=== PATIENT | female | born 1955 | race Caucasian/White ===

== ENCOUNTER 2016-11-04 14:04 | Emergency (ER) | payer BC ==
[2016-11-04 14:23] VITALS: BP 154/81
[2016-11-04] MEDS ORDERED: Cyclobenzaprine 10 MG Tab PO ONE (14:55)
[2016-11-04] MEDS ORDERED: HYDROmorphone 0.5 MG/0.5 ML Syringe IM ONE (14:55)
--- NOTE | 2016-11-04 14:58 | EDM.PDOC ---
[id number]: ABD/BACK PAIN Time Seen by Provider: 11/04/16 14:56 Source of Information: Reports: Patient History Limitations: Reports: No Limitations - History of Present Illness INITIAL COMMENTS - FREE TEXT/NARRATIVE: pt has a long history of low back pain. She has known disc diease. Sh was at work and she deloped severe low back pain and the pain is coming around to the front of her abdoman. She did not have definite urine symptoms. Onset: Gradual Duration: Hour(s):, Getting Worse Location: Reports: Back Associated Symptoms: Reports: No Other Symptoms Lower Back Pain Score (Numeric/FACES): 8 - Related Data Allergies Allergy/AdvReac Type Severity Reaction Status Date / Time No Known Allergies Allergy Verified 11/04/16 14:31 Home Meds: Home Meds DULoxetine [Cymbalta] 60 mg PO DAILY 02/15/13 [History] Pantoprazole [Protonix] 40 mg PO DAILY #30 tab.cr 07/12/15 [Rx] Flecainide [Tambocor] 100 mg PO DAILY 11/04/16 [History] Past Medical History HEENT History: Reports: Impaired Vision Cardiovascular History: Reports: Arrhythmia, Other (See Below) Other Cardiovascular History: tachy Respiratory History: Reports: Asthma Gastrointestinal History: Reports: GERD Genitourinary History: Reports: Renal Calculus 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: Musculoskeletal History: Reports: Arthritis, Back Pain, Chronic, Other (See Below) Other Musculoskeletal History: bursitis in hips Hematologic History: Reports: Anemia Dermatologic History: Reports: Eczema - Past Surgical History GI Surgical History: Reports: Appendectomy Female Surgical History: Reports: Hysterectomy, Oophorectomy, Other (See Below) Other Female Surgeries/Procedures: lumpectomy left breast Social & Family History - Family History Cardiac: Reports: Afib Respiratory: Reports: Asthma Oncologic: Reports: Lung - Tobacco Use Smoking Status *Q: Never Smoker - Caffeine Use Caffeine Use: Reports: Coffee - Recreational Drug Use Recreational Drug Use: No ED ROS GENERAL - Review of Systems Review Of Systems: See Below Constitutional: Reports: No Symptoms HEENT: Reports: No Symptoms Respiratory: Reports: No Symptoms Cardiovascular: Reports: No Symptoms Endocrine: Reports: No Symptoms GI/Abdominal: Reports: Other (pain in the abdoman bilateral coming around from the back . pt has been having normal bms and no vomitin. ) : Reports: No Symptoms Musculoskeletal: Reports: Other (Pain in the lower back no radiation down the legs radiates to the abdoman both sides. ) ED EXAM,LOWER BACK PAIN/INJURY - Physical Exam Exam: See Below Text/Narrative:: pt arrived with severe lower back pain. She has known lumbar disc disease in the l4-l5 area. She has some pain in the abdoman which is coming to the front. Exam Limited By: No Limitations General Appearance: Alert, Moderate Distress Ears: Normal External Exam Nose: Normal Inspection Throat/Mouth: Normal Inspection Head: Atraumatic Neck: Normal Inspection Respiratory/Chest: No Respiratory Distress Cardiovascular: Regular Rate, Rhythm GI/Abdominal: Other (pt is not guarded. She has no fever. ) (Female) Exam: Deferred Rectal (Female) Exam: Deferred Back Exam: Normal Inspection, Other (mild muscle tenderness. ) Extremities: Normal Inspection Neurological: Alert, Oriented x 3 Course - Vital Signs Last Recorded V/S: Last Vital Signs Temp 37.3 C 11/04/16 14:22 Pulse 85 11/04/16 14:22 Resp 20 11/04/16 14:22 BP 154/81 H 11/04/16 14:22 Pulse Ox 99 11/04/16 14:22 - Orders/Labs/Meds Labs: Laboratory Tests 11/04/16 11/04/16 11/04/16 Range/Units 14:54 14:54 15:13 WBC 7.9 (4.5-11.0) K/uL RBC 4.56 (3.30-5.50) M/uL Hgb 13.1 (12.0-15.0) g/dL Hct 40.2 (36.0-48.0) % MCV 88 (80-98) fL MCH 29 (27-31) pg MCHC 33 (32-36) % Plt Count 408 H (150-400) K/uL Neut % (Auto) 56 (36-66) % Lymph % (Auto) 29 (24-44) % [place] % (Auto) 11 H (2-6) % Eos % (Auto) 3 (2-4) % Baso % (Auto) 1 (0-1) % Sodium 144 (140-148) mmol/L Potassium 3.7 (3.6-5.2) mmol/L Chloride 109 H (100-108) mmol/L Carbon Dioxide 28 (21-32) mmol/L Anion Gap 10.7 (5.0-14.0) mmol/L BUN 11 D (7-18) mg/dL Creatinine 0.8 (0.6-1.0) mg/dL Est Cr Clr Drug Dosing 67.29 mL/min Estimated GFR (MDRD) > 60 (>60) Glucose 85 (74-106) mg/dL Calcium 8.9 (8.5-10.1) mg/dL Total Bilirubin 0.3 (0.2-1.0) mg/dL AST 14 L (15-37) U/L ALT 18 (12-78) U/L Alkaline Phosphatase 64 (46-116) U/L Total Protein 6.7 (6.4-8.2) g/dL Albumin 3.4 (3.4-5.0) g/dL Globulin 3.3 (2.3-3.5) g/dL Albumin/Globulin Ratio 1.0 L (1.2-2.2) Urine Color Yellow Urine Appearance Clear Urine pH 5.0 (4.5-8.0) Ur Specific [place] 1.010 (1.008-1.030) Urine Protein Negative (NEGATIVE) mg/dL Urine Glucose (UA) Normal (NEGATIVE) mg/dL Urine Ketones Negative (NEGATIVE) mg/dL Urine Occult Blood Negative (NEGATIVE) Urine Nitrite Negative (NEGATIVE) Urine Bilirubin Negative (NEGATIVE) Urine Urobilinogen Normal (NORMAL) mg/dL Ur Leukocyte Esterase Negative (NEGATIVE) Urine RBC Not seen (0-5) Urine WBC 0-5 (0-5) Ur Epithelial Cells Few Amorphous Sediment Not seen Urine Bacteria Few Urine Mucus Not seen Meds: Medications Discontinued Medications Generic Name Dose Route Start Last Admin Trade Name Freq PRN Reason Stop Dose Admin Cyclobenzaprine HCl 10 mg 11/04/16 14:55 11/04/16 15:49 Flexeril PO 11/04/16 14:56 10 mg ONETIME ONE Administration Hydromorphone HCl 0.5 mg 11/04/16 14:55 11/04/16 15:50 Dilaudid IM 11/04/16 14:56 Not Given ONETIME ONE Hydromorphone HCl 0.5 mg 11/04/16 15:48 11/04/16 15:59 Dilaudid IVPUSH 11/04/16 15:49 0.5 mg ONETIME ONE Administration Ketorolac Tromethamine 60 mg 11/04/16 16:12 11/04/16 16:31 Toradol IM 11/04/16 16:13 60 mg ONETIME ONE Administration - Re-Assessments/Exams Free Text/Narrative Re-Assessment/Exam: 11/04/16 16:15 pt had normal labs and the urinewas clear. She was given dilaudid .5 im and torodol 60mg im. flexeril 10mg was also given. She was advised that the pain coming to the front was most likely muscle. Departure - Departure Time of Disposition: 16:17 Disposition: Home, Self-Care 01 Condition: Fair Clinical Impression: Lumbar disc disease, Abdominal muscle pain - Discharge Information Instructions: Abdominal Pain, Adult, Aevs-nx-Dapt, Back Pain, Adult, Easy-to- Read Referrals: Patito Napoles PA [Primary Care Provider] - Forms: ED Department Discharge Care Plan Goals: rtc if pt not getting better, heat and ice o the low back, flexeril 10 mg hs, percocet 5/325 q6h prn for pain, no work for the next 2 days.
[2016-11-04] MEDS ORDERED: HYDROmorphone 1 MG/ML Syringe IVPUSH ONE (15:48)
[2016-11-04] MEDS ORDERED: Ketorolac 60 MG/2 ML SDV IM ONE (16:12)
== END 2016-11-04 17:13 | disposition home or self-care (01) ==
LOC: JP.ED 14:04
DX: M51.86 Other intervertebral disc disorders, lumbar region (principal); M79.1 Myalgia; J45.909 Unspecified asthma, uncomplicated; K21.9 Gastro-esophageal reflux disease without esophagitis; M19.90 Unspecified osteoarthritis, unspecified site; Z90.710 Acquired absence of both cervix and uterus; Z90.721 Acquired absence of ovaries, unilateral; Z98.890 Other specified postprocedural states; Z79.899 Other long term (current) drug therapy; Z86.2 Personal history of diseases of the blood and blood-forming organs and certain disorders involving the immune mechanism
CPT/HCPCS: 36415; 80053; 81001; 85025; 96372; 96374; 99284; A9270; J1170; J1885

== ENCOUNTER 2021-06-20 11:56 | Emergency (ER) | payer BC, MEDICARE, OTHER ==
[2021-06-20 12:26] VITALS: BP 141/69; PULSE 86
== END 2021-06-20 15:02 | disposition home or self-care (01) ==
LOC: JP.ED 11:56
DX: K29.00 Acute gastritis without bleeding (principal); Z91.040 Latex allergy status
CPT/HCPCS: 36415; 74176; 74176-26; 76705; 76705-26; 80053; 83690; 85025; 99284; 99284-25

== ENCOUNTER 2023-05-14 16:17 | Emergency (ER) | payer MEDICARE ==
[2023-05-14 16:29] VITALS: BP 139/73; PULSE 80
== END 2023-05-14 17:04 | disposition home or self-care (01) ==
LOC: JP.ED 16:17
DX: T16.2XXA Foreign body in left ear, initial encounter (principal); Z79.899 Other long term (current) drug therapy; Z91.040 Latex allergy status
CPT/HCPCS: 99282

== ENCOUNTER 2024-02-05 17:21 | Emergency (ER) | payer MEDICARE ==
[2024-02-05 19:03] VITALS: BP 139/71; PULSE 75
== END 2024-02-05 19:45 | disposition left against medical advice (07) ==
LOC: JP.ED 17:21
DX: Z53.21 Procedure and treatment not carried out due to patient leaving prior to being seen by health care provider (principal)

== ENCOUNTER 2025-04-02 03:37 | Observation (INO) | payer MEDICARE ==
[2025-04-02 04:00] LABS: BASOPHILS ABSOLUTE AUTO 0.04 K/uL (0.00-0.10); BASOPHILS PERCENT AUTO 0.4 % (0.1-1.3); EOSINOPHILS ABSOLUTE AUTO 0.12 K/uL (0.00-0.40); EOSINOPHILS PERCENT AUTO 1.1 % (0.0-5.4); IMMATURE GRAN ABSOLUTE AUTO 0.03 K/uL (0.00-0.23); IMMATURE GRAN PERCENT AUTO 0.3 % (0.0-0.7); LYMPHOCYTES ABSOLUTE AUTO 2.33 K/uL (0.8-3.3); LYMPHOCYTES PERCENT AUTO 22.1 % (11.4-47.7); MONOCYTES ABSOLUTE AUTO 0.83 K/uL (0.20-0.90); MONOCYTES PERCENT AUTO 7.9 % (3.3-12.6); NEUTROPHILS ABSOLUTE AUTO 7.20 K/uL (1.0-7.6); NEUTROPHILS PERCENT AUTO 68.2 % (40.0-78.1); PLATELET COUNT,PLT 312 K/uL (130-375); RED BLOOD CELL COUNT 4.19 M/uL (3.77-5.24); WHITE BLOOD CELL COUNT,WBC 10.6 K/uL (3.2-11.0)
[2025-04-02 04:24] LABS: LACTIC ACID 1.2 mmol/L (0.4-2.0)
[2025-04-02 04:31] LABS: A/G RATIO 1.1 (1.2-2.2); ALANINE AMINOTRANSFERASE,ALT 417 U/L (12-78); ASPARTATE AMNIOTRANSFERASE,AST 910 U/L (15-37); BILIRUBIN TOTAL 0.9 mg/dL (0.2-1.0); BLOOD UREA NITROGEN,BUN 16 mg/dL (7-18); CARBON DIOXIDE,CO2 26 mmol/L (21-32); CHLORIDE,CL 105 mmol/L (100-108); CREATININE 1.0 mg/dL (0.6-1.0); EST CRCL DRUG DOSING (CG) 43.92 mL/min; ESTIMATED GFR 61 mL/min (>60); GLUCOSE RANDOM 102 mg/dL (74-106); POTASSIUM,K 3.1 mmol/L (3.6-5.2); PROTEIN TOTAL,TP 6.2 g/dL (6.4-8.2); SODIUM,NA 141 mmol/L (140-148)
[2025-04-02] MEDS: Sodium Chloride 0.9% 10 ML Syringe FLUSH PRN (04:50)
[2025-04-02] MEDS: Iopamidol 612 MG/ML 100 ML Bottle IV SCH (04:50)
[2025-04-02 05:01] LABS: APPEARANCE,URINE CLEAR (CLEAR); GLUCOSE,URINE NEGATIVE (NEGATIVE); OCCULT BLOOD,URINE NEGATIVE (NEGATIVE)
[2025-04-02] MEDS ORDERED: Naloxone 0.4 MG/ML SDV IVPUSH PRN ×2 (05:41→05:58)
[2025-04-02] MEDS: Ondansetron 4 MG/2 ML SDV IVPUSH ONE (05:47)
[2025-04-02] MEDS ORDERED: Ondansetron 4 MG/2 ML SDV IV PRN (05:58)
[2025-04-02] MEDS ORDERED: Ondansetron 4 MG Tab.DIS PO PRN (05:58)
[2025-04-02] MEDS ORDERED: Sennosides/Docusate Sodium 50-8.6 MG Tab PO PRN (05:58)
[2025-04-02] MEDS ORDERED: fentaNYL 250 MCG/5 ML SDV ONE (08:13)
[2025-04-02] MEDS: Piperacillin/Tazobactam/Dext 4.5 GM in Premix Bag 1 BAG IV SCH (09:03)
[2025-04-02] MEDS: buPROPion 150 MG Tab.ER PO SCH (09:22)
[2025-04-02] MEDS: Indocyanine Green 25 MG SDV IV ONE (10:40)
[2025-04-02] MEDS ORDERED: Lactated Ringers 1,000 ML ONE (11:12)
[2025-04-02] MEDS ORDERED: fentaNYL 100 MCG/2 ML SDV ONE (11:38)
[2025-04-02] MEDS ORDERED: Glycopyrrolate 0.2 MG/ML 5 ML MDV ONE (11:38)
[2025-04-02] MEDS ORDERED: Propofol 200 MG/20 ML SDV ONE (11:38)
[2025-04-02] MEDS ORDERED: Dexamethasone 4 MG/ML SDV ONE (11:38)
[2025-04-02] MEDS ORDERED: Ondansetron 4 MG/2 ML SDV ONE (11:38)
[2025-04-02] MEDS ORDERED: Succinylcholine 200 MG/10 ML MDV ONE (11:38)
[2025-04-02] MEDS: Bupivacaine 0.25%/EPINEPHrine 1:200,000 30 ML SDV ONE (12:00)
[2025-04-02] MEDS: Lactobacillus Rhamnosus GG (Probiotic) Cap PO SCH (20:55)
[2025-04-03] MEDS: Heparin Sodium 5,000 Units/ML Vial SUBCUT SCH (05:00)
[2025-04-03 05:39] LABS: BASOPHILS ABSOLUTE AUTO 0.04 K/uL (0.00-0.10); BASOPHILS PERCENT AUTO 0.7 % (0.1-1.3); EOSINOPHILS ABSOLUTE AUTO 0.05 K/uL (0.00-0.40); EOSINOPHILS PERCENT AUTO 0.9 % (0.0-5.4); IMMATURE GRAN PERCENT AUTO 0.4 % (0.0-0.7); LYMPHOCYTES ABSOLUTE AUTO 1.21 K/uL (0.8-3.3); LYMPHOCYTES PERCENT AUTO 21.9 % (11.4-47.7); MONOCYTES ABSOLUTE AUTO 0.63 K/uL (0.20-0.90); MONOCYTES PERCENT AUTO 11.4 % (3.3-12.6); NEUTROPHILS ABSOLUTE AUTO 3.58 K/uL (1.0-7.6); NEUTROPHILS PERCENT AUTO 64.7 % (40.0-78.1); PLATELET COUNT,PLT 244 K/uL (130-375); RED BLOOD CELL COUNT 3.73 M/uL (3.77-5.24); WHITE BLOOD CELL COUNT,WBC 5.5 K/uL (3.2-11.0)
[2025-04-03 05:51] LABS: IMMATURE GRAN ABSOLUTE AUTO 0.02 K/uL (0.00-0.23)
[2025-04-03 06:05] LABS: A/G RATIO 1.0 (1.2-2.2); ALANINE AMINOTRANSFERASE,ALT 810.0 U/L (12-78); ASPARTATE AMNIOTRANSFERASE,AST 591.0 U/L (15-37); BILIRUBIN DIRECT 1.19 mg/dL (0.0-0.2); BILIRUBIN INDIRECT 0.81; BILIRUBIN TOTAL 2.0 mg/dL (0.2-1.0); BLOOD UREA NITROGEN,BUN 7.0 mg/dL (7-18); CARBON DIOXIDE,CO2 27.0 mmol/L (21-32); CHLORIDE,CL 107.0 mmol/L (100-108); CREATININE 0.8 mg/dL (0.6-1.0); EST CRCL DRUG DOSING (CG) 54.9 mL/min; ESTIMATED GFR 80.0 mL/min (>60); GLUCOSE RANDOM 100.0 mg/dL (74-106); POTASSIUM,K 3.9 mmol/L (3.6-5.2); PROTEIN TOTAL,TP 5.6 g/dL (6.4-8.2); SODIUM,NA 141.0 mmol/L (140-148)
[2025-04-03 12:10] VITALS: BP 102/58; PULSE 66
== END 2025-04-03 13:05 | disposition home or self-care (01) ==
LOC: JP.ED 03:37 → JP.MS 05:39
PROVIDERS: ADMIT Registered Nurse; ATTEND Hospitalist
DX: K80.12 Calculus of gallbladder with acute and chronic cholecystitis without obstruction (principal); K66.0 Peritoneal adhesions (postprocedural) (postinfection); Z88.8 Allergy status to other drugs, medicaments and biological substances; Z79.899 Other long term (current) drug therapy
CPT/HCPCS: 36415; 47562; 74177; 80048; 80053; 80076; 81003; 83605; 83690; 84484; 85025; 86140; A9270; J0330; J1100; J1644; J2405; J2470; J2543; J2704; J2710; J3010; J3480; J7030; J7120; Q9967; 88304; 99284; J1171; J1596; J3490

== ENCOUNTER 2025-04-03 19:24 | Emergency (ER) | payer MEDICARE ==
[2025-04-03] MEDS: Ondansetron 4 MG/2 ML SDV IVPUSH ONE (20:08)
[2025-04-03 20:11] LABS: BASOPHILS ABSOLUTE AUTO 0.05 K/uL (0.00-0.10); BASOPHILS PERCENT AUTO 1.0 % (0.1-1.3); EOSINOPHILS ABSOLUTE AUTO 0.30 K/uL (0.00-0.40); EOSINOPHILS PERCENT AUTO 5.9 % (0.0-5.4); IMMATURE GRAN PERCENT AUTO 0.4 % (0.0-0.7); LYMPHOCYTES ABSOLUTE AUTO 2.01 K/uL (0.8-3.3); LYMPHOCYTES PERCENT AUTO 39.3 % (11.4-47.7); MONOCYTES ABSOLUTE AUTO 0.44 K/uL (0.20-0.90); MONOCYTES PERCENT AUTO 8.6 % (3.3-12.6); NEUTROPHILS ABSOLUTE AUTO 2.29 K/uL (1.0-7.6); NEUTROPHILS PERCENT AUTO 44.8 % (40.0-78.1); PLATELET COUNT,PLT 276 K/uL (130-375); RED BLOOD CELL COUNT 3.87 M/uL (3.77-5.24); WHITE BLOOD CELL COUNT,WBC 5.1 K/uL (3.2-11.0)
[2025-04-03 20:12] LABS: IMMATURE GRAN ABSOLUTE AUTO 0.02 K/uL (0.00-0.23)
[2025-04-03 20:32] LABS: A/G RATIO 1.0 (1.2-2.2); ALANINE AMINOTRANSFERASE,ALT 677 U/L (12-78); ASPARTATE AMNIOTRANSFERASE,AST 364 U/L (15-37); BILIRUBIN TOTAL 3.4 mg/dL (0.2-1.0); BLOOD UREA NITROGEN,BUN 7 mg/dL (7-18); CARBON DIOXIDE,CO2 23 mmol/L (21-32); CHLORIDE,CL 108 mmol/L (100-108); CREATININE 0.9 mg/dL (0.6-1.0); EST CRCL DRUG DOSING (CG) 48.80 mL/min; ESTIMATED GFR 69 mL/min (>60); GLUCOSE RANDOM 93 mg/dL (74-106); POTASSIUM,K 3.2 mmol/L (3.6-5.2); PROTEIN TOTAL,TP 6.2 g/dL (6.4-8.2); SODIUM,NA 143 mmol/L (140-148)
[2025-04-04 05:45] LABS: A/G RATIO 0.9 (1.2-2.2); ALANINE AMINOTRANSFERASE,ALT 549 U/L (12-78); ASPARTATE AMNIOTRANSFERASE,AST 212 U/L (15-37); BILIRUBIN TOTAL 3.2 mg/dL (0.2-1.0); BLOOD UREA NITROGEN,BUN 6 mg/dL (7-18); CARBON DIOXIDE,CO2 25 mmol/L (21-32); CHLORIDE,CL 108 mmol/L (100-108); CREATININE 0.7 mg/dL (0.6-1.0); EST CRCL DRUG DOSING (CG) 62.74 mL/min; ESTIMATED GFR 94 mL/min (>60); GLUCOSE RANDOM 80 mg/dL (74-106); POTASSIUM,K 3.5 mmol/L (3.6-5.2); PROTEIN TOTAL,TP 5.8 g/dL (6.4-8.2); SODIUM,NA 143 mmol/L (140-148)
[2025-04-04] MEDS: Iopamidol 612 MG/ML 100 ML Bottle IV SCH (08:25)
[2025-04-04 11:09] VITALS: BP 126/64; PULSE 68
== END 2025-04-04 11:00 ==
LOC: JP.ED 19:24
DX: K80.50 Calculus of bile duct without cholangitis or cholecystitis without obstruction (principal); G89.29 Other chronic pain; Z90.49 Acquired absence of other specified parts of digestive tract; E86.0 Dehydration; Z79.899 Other long term (current) drug therapy; Z90.710 Acquired absence of both cervix and uterus
CPT/HCPCS: 36415; 74022; 74177; 80053; 83690; 85025; 86140; 96361; 96374; 96375; 96376; 99285; J2405; J7030; Q9967; J1171